=== PATIENT | female | born 1975 | race Caucasian/White ===

== ENCOUNTER → 2018-01-19 11:35 | Emergency (ER) | payer MEDICARE ==
[~2018-01-19 11:35] MED LIST: Tetan/Diph/Pertus SYR(Tdap)* 0.5 ML SYR(BOOSTRIX) use SYR IM ONE
--- NOTE | 2018-01-19 14:14 | RAD ---
INDICATION: Left wrist injury. TECHNIQUE: 3 views of the left wrist were obtained. FINDINGS: The bones are in normal alignment. No fracture is seen. Joint spaces appear maintained. IMPRESSION: NO EVIDENCE FOR FRACTURE. IF THE PATIENT'S SYMPTOMS PERSIST RECOMMEND FOLLOW-UP IMAGING.
--- NOTE | 2018-01-19 14:15 | RAD ---
HISTORY: stomp injury COMPARISONS: None VIEWS: 2 , Frontal and lateral views of the left hand FINDINGS: BONE DENSITY: Normal. BONES: There is no displaced fracture. JOINTS: There is no arthropathy. ALIGNMENT: There is no dislocation. SOFT TISSUES: Unremarkable. OTHER FINDINGS: None. IMPRESSION: NO ACUTE OSSEOUS INJURY. IF SYMPTOMS PERSIST, RECOMMEND REPEAT IMAGING.
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
[2018-01-19 15:15] VITALS: BP 146/89
== END | disposition home or self-care (01) ==
LOC: EDSEX → ED 11:35
DX: S50.12XA Contusion of left forearm, initial encounter (principal); S50.812A Abrasion of left forearm, initial encounter; Y04.2XXA Assault by strike against or bumped into by another person, initial encounter; Y93.01 Activity, walking, marching and hiking; Y92.89 Other specified places as the place of occurrence of the external cause; Z23 Encounter for immunization; F99 Mental disorder, not otherwise specified; Z76.0 Encounter for issue of repeat prescription; Z88.8 Allergy status to other drugs, medicaments and biological substances; Z87.891 Personal history of nicotine dependence
CPT/HCPCS: 90471; 90715; 99282

== ENCOUNTER 2018-01-23 23:21 | Inpatient (IN) | payer SELFPAY ==
[2018-01-23] MEDS ORDERED: Haloperidol INJ IV/IM* 5 MG/ML AMP ONE (23:54)
[2018-01-23] MEDS ORDERED: LORazepam INJ* 2 MG/ML 1 ML VIAL IM ONE (23:55)
[2018-01-23] MEDS ORDERED: Haloperidol INJ IV/IM* 5 MG/ML AMP IM ONE (23:55)
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
[2018-01-24 00:20] LABS: Urine Appearance Cloudy; Urine Blood Negative (Negative); Urine Color Amber; Urine Ketones Negative (Negative); Urine Protein Negative (Negative); Urine Specific Gravity 1.029 (1.010-1.030); Urine Urobilinogen Negative (Negative)
[2018-01-24 00:36] LABS: ABS Basophils 0.1 10^3/ul (0-0.2); ABS Eosinophils 0.3 10^3/ul (0-0.6); ABS Lymphocytes 2.6 10^3/ul (1.0-4.8); ABS Monocytes 0.8 10^3/ul (0-0.8); ABS Neutrophils 6.6 10^3/ul (1.5-7.7); ABS Nucleated RBC 0 10^3/ul; Eosinophil % 2.6 % (0-6); Hematocrit 43 % (35-47); Hemoglobin 14.8 g/dl (12.0-16.0); Lymphocyte % 25.4 % (25-47); Mean Corpuscular HGB Conc 34 g/dl (31-36); Mean Corpuscular Hemoglobin 30 pg (27-31); Mean Corpuscular Volume 88 fL (80-97); Mean Platelet Volume 6.2 um3 (7.4-10.4); Nucleated Red Blood Cells % 0.1; Platelet Count 312 10^3/ul (150-450); Red Blood Count 4.88 10^6/ul (4.00-5.40); Red Cell Distribution Width 13 % (10.5-15); White Blood Count 10.4 10^3/ul (3.5-10.8)
[2018-01-24 00:54] LABS: EGFR Non-African American 52.8 (>60)
[2018-01-24] MEDS ORDERED: LORazepam TAB(*) 1 MG ONE ×2 (02:13→02:15)
[2018-01-24] MEDS ORDERED: Haloperidol TAB* 5 MG ONE ×2 (02:13→02:15)
[2018-01-24] MEDS ORDERED: Haloperidol INJ IV/IM* 5 MG/ML AMP ONE (02:15)
[2018-01-24] MEDS ORDERED: LORazepam INJ* 2 MG/ML 1 ML VIAL ONE (02:15)
[2018-01-24] MEDS ORDERED: LORazepam TAB(*) 1 MG PO ONE (02:26)
[2018-01-24] MEDS ORDERED: Haloperidol TAB* 10 MG PO ONE (02:26)
[2018-01-24] MEDS ORDERED: Haloperidol TAB* 5 MG PO PRN (11:41)
[2018-01-24] MEDS: Ibuprofen TAB* 400 MG PO PRN (12:56)
[2018-01-24] MEDS: carBAMazepine ER TAB(*) 200 MG PO SCH (12:56)
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
[2018-01-24] MEDS: diPHENhydraMINE PO* 50 MG PO PRN (15:50)
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
[2018-01-24] MEDS: Mupirocin 2% OINT* TUBE TOPICAL SCH (22:27)
[2018-01-24] MEDS: OLANzapine TAB* 5 MG PO SCH (22:28)
[2018-01-25] MEDS: Ibuprofen TAB* 400 MG PO PRN (02:57)
[2018-01-25] MEDS: carBAMazepine ER TAB(*) 200 MG PO SCH ×2 (08:19→20:06)
[2018-01-25] MEDS: Mupirocin 2% OINT* TUBE TOPICAL SCH ×2 (10:19→22:50)
[2018-01-25] MEDS ORDERED: Metaxalone TAB* 800 MG PO PRN (10:55)
--- NOTE | 2018-01-25 10:56 | PN ---
Subjective - Subjective Date of Service: 01/25/18 Service Type: 13999 Hosp care 15 min low complexity Subjective: Patient was seen by self, discussed with treatment team, chart was reviewed. Patient has been partially compliant with her medications, no reported side effects. Patient is still easily irrtiable, hyperactive, hyperverbal but some improvement, continues to be uncooperative better than yesterday as he was able to sit during the interview for few minutes before getting agitated about questions regarding his past psychiatric history. As patient is in denial of any mental illness. Patient states "I am not psychotic" and has been refusing his Zyprexa at bedtime and was not happy with that. Patient has been preoccupied about his muscle relaxant (Skelaxin) and Ibuprofen and demanding it. Patient's sleeping has been disturbed. Patient eating has been fair. Patient has been superficially cooperative with staff. Patient refused recommendations by hospitalist yesterday and was educated about it. Patient is angry most of the time but behavior has been in somewhat better control and no dangerous behavior. Patient has been reporting no suicidal or homicidal ideation. Patient has psychotic symptoms of paranoid delusions but no hallucinations. Objective - Appearance Appearance: Healthy Appearing Dysmorphic Features: No Hygiene: Normal Grooming: Fairly Well Kept - Behavior Psychomotor Activities: Normal Exhibits Abnormal Movement: No - Attitude and Relatedness Attitude and Relatedness: Cooperative Eye Contact: Fair - Speech Quality: Unpressured Latencies: Normal Quantity: Appropriate - Mood Patient's Decription of Mood: "Angry" - Affect Observed Affect: Expansive Affect Consistent with: Dysphoria - to angry - Thought Process Patient's Thought Process: Coherent, Tangential - less, Circumstantial Thought Content: Yes Paranoid Ideation, No Passive Wish, No Suicidal Planning, No Homicidal Ideation - Sensorium Experiencing Hallucinations: No, Sensorium is Clear Type of Hallucinations: Visual: No, Auditory: No, Command: No - Level of Consciousness Level of Consciousness: Alert Orientation: Yes Intact, Yes Orientated to Time, Yes Orientated to Place, Yes Orientated to Person - Impulse Control Impulse Control: Poor - Insight and Judgement Insight and Judgement: Poor - Medication Management Medication Management Adherence: Partial Assessment - Assessment Merits Inpatient Hospitalization: For Immediate Safety, For Stabilization, For Discharge Planning Inpatient DSM-V Dx: F31.2 Clinical Impression: Patient with history of unspecified mental illness likely Bipolar Disorder. Patient currently admitted due to worsening of her mood instability, disorganized and delusional thinking with impulsive, risky and unpredictable behavior. Patient has also struggled with her relationship with her fianc that she came from [place] to visit on birthday. Patient is a danger to self and others if discharged hence will be stabilized on inpatient unit with medication adjustments and therapy. Plan - Plan Treatment Plan: Name: MEGHAN HENAO Birthdate: 1975 [id number] - Patient continues to be hospitalized due to recent disorganized and delusional thinking with irritable mood. - Patient's medications were adjusted after informed consent with increment in Tegretol XR 400mg BID and was also started on Muscle relaxant Skelaxin 800mg PRN muscle spasm. Patient Ibuprofen was also increased to 600 mg PRN. Patient was also Sumatriptan prn for migraines. - Patient will be monitored for improvement and side effects. Risk and benefits were discussed. - Patient was encouraged to continue his participation in the milieu, group and individual therapy. Medications: Current Medications Carbamazepine (Tegretol Xr Tab(*)) 400 mg PO BID [facility] Diphenhydramine HCl (Benadryl Po*) 50 mg PO Q6H PRN PRN Reason: anxiety/agitation Last Admin: 01/24/18 15:50 Dose: 50 mg Haloperidol (Haldol Tab*) 5 mg PO Q6H PRN PRN Reason: severe agitation Ibuprofen (Motrin Tab*) 600 mg PO Q6H PRN PRN Reason: PAIN Metaxalone (Skelaxin Tab*) 800 mg PO DAILY PRN PRN Reason: muscle spasms Mupirocin (Bactroban 2 % Oint*) 1 applic TOPICAL BID [facility] Last Admin: 01/25/18 10:19 Dose: 1 applic Olanzapine (Zyprexa Tab*) 5 mg PO BEDTIME [facility] Last Admin: 01/24/18 22:28 Dose: Not Given
[2018-01-25] MEDS ORDERED: SUMAtriptan TAB* 25 MG PO PRN (11:20)
[2018-01-25] MEDS: Metaxalone TAB* 800 MG PO PRN ×2 (11:40→19:57)
[2018-01-25] MEDS: Ibuprofen TAB* 600 MG PO PRN ×2 (11:41→19:29)
[2018-01-25] MEDS: OLANzapine TAB* 5 MG PO SCH (20:07)
[2018-01-25] MEDS ORDERED: oxyCODONE/Acetamin 5/325 MG* TAB PO ONE (22:00)
[2018-01-26] MEDS: Metaxalone TAB* 800 MG PO PRN ×3 (04:16→22:32)
[2018-01-26] MEDS: Ibuprofen TAB* 600 MG PO PRN ×3 (04:17→21:27)
[2018-01-26] MEDS: carBAMazepine ER TAB(*) 200 MG PO SCH ×2 (08:43→20:50)
[2018-01-26] MEDS: Mupirocin 2% OINT* TUBE TOPICAL SCH ×2 (08:44→20:38)
[2018-01-26] MEDS ORDERED: SUMAtriptan TAB* 50 MG PO PRN (13:30)
--- NOTE | 2018-01-26 13:43 | PN ---
Subjective - Subjective Date of Service: 01/26/18 Service Type: 20293 Hosp care 25 min moderate complexity Subjective: Patient was seen by self, discussed with treatment team, chart was reviewed. Patient has been partially compliant with her medications, no reported side effects. Patient is less irrtiable, less hyperactive, less hyperverbal with gradual improvement, waxing and waning in terms of her cooperation level. Patient was less disorganized in her thinking and more understandable. Patient wanted to get back on Kelfex 500 mg which was prescribed on 01/12 for 7 day and patient had taken just six tablets. Patient wanted to address his blisters at the back of foot and stated it was painful .Patient was discussed with Dr. Millard ( hospitalist nursing home admissions director) and recommended to be started on Doxycycline 100 mg PO BID for 10 days an also to be started on Clotrimazole cream for fungal skin lesions. Patient is still resistant to talk about her mental illness and gets easily agitated when brought up in discussion but has been taking Tegretol and getting better in her mood and symptoms. Patient sleep has been better. Patient has been reporting no suicidal or homicidal ideation. Patient has no psychotic symptoms of delusions or hallucinations. Patient requested for computer access to helpe him take care of certain situations related to work and was granted with supervision after discussing with nurse Objective - Appearance Appearance: Healthy Appearing Dysmorphic Features: No Hygiene: Normal Grooming: Fairly Well Kept - Behavior Psychomotor Activities: Normal Exhibits Abnormal Movement: No - Attitude and Relatedness Attitude and Relatedness: Cooperative Eye Contact: Fair - Speech Quality: Unpressured Latencies: Normal Quantity: Appropriate - Mood Patient's Decription of Mood: "Fine" - Affect Observed Affect: Fair Affect Consistent with: Euthymia - but labile - Sensorium Experiencing Hallucinations: No, Sensorium is Clear Type of Hallucinations: Visual: No, Auditory: No, Command: No - Level of Consciousness Level of Consciousness: Alert Orientation: Yes Intact, Yes Orientated to Time, Yes Orientated to Place, Yes Orientated to Person - Impulse Control Impulse Control: Poor - but improving - Insight and Judgement Insight and Judgement: Poor - but improving - Medication Management Medication Management Adherence: Yes Assessment - Assessment Merits Inpatient Hospitalization: For Immediate Safety, For Stabilization, For Discharge Planning Inpatient DSM-V Dx: F31.2 Clinical Impression: Patient with history of unspecified mental illness likely Bipolar Disorder. Patient currently admitted due to worsening of her mood instability, disorganized and delusional thinking with impulsive, risky and unpredictable behavior. Patient has also struggled with her relationship with her fianc that she came from [place] to visit on birthday. Patient is a danger to self and others if discharged hence will be stabilized on inpatient unit with medication adjustments and therapy. Plan - Plan Treatment Plan: Name: MEGHAN HENAO Birthdate: 1975 [id number] - Patient continues to be hospitalized due to recent disorganized and delusional thinking with irritable mood. - Patient's medications were adjusted after informed consent with continuation of Tegretol XR 400mg BID and Muscle relaxant Skelaxin 800mg PRN muscle spasm. Patient Ibuprofen was continued at 600 mg PRN. Patient was also given Sumatriptan 50 mg onetime prn for migraines. - Patient was discussed with hospitalist nursing home admissions director and was started on Doxycycline 100 mg BID for 10 days and Clotrimazole 1% BID to affected area. - Patient will be monitored for improvement and side effects. Risk and benefits were discussed. - Patient was encouraged to continue his participation in the milieu, group and individual therapy. Medications: Current Medications Carbamazepine (Tegretol Xr Tab(*)) 400 mg PO BID [facility] Last Admin: 01/26/18 08:43 Dose: 400 mg Clotrimazole (Clotrimazole 1%*) 1 applic TOPICAL BID [facility] Diphenhydramine HCl (Benadryl Po*) 50 mg PO Q6H PRN PRN Reason: anxiety/agitation Last Admin: 01/24/18 15:50 Dose: 50 mg Doxycycline Hyclate (Vibramycin Cap(*)) 100 mg PO BID [facility] Stop: 02/05/18 13:59 Haloperidol (Haldol Tab*) 5 mg PO Q6H PRN PRN Reason: severe agitation Ibuprofen (Motrin Tab*) 600 mg PO Q6H PRN PRN Reason: PAIN Last Admin: 01/26/18 12:45 Dose: 600 mg Metaxalone (Skelaxin Tab*) 800 mg PO BID PRN PRN Reason: muscle spasms Last Admin: 01/26/18 04:16 Dose: 800 mg Mupirocin (Bactroban 2 % Oint*) 1 applic TOPICAL BID [facility] Last Admin: 01/26/18 08:44 Dose: 1 applic Olanzapine (Zyprexa Tab*) 5 mg PO BEDTIME [facility] Last Admin: 01/25/18 20:07 Dose: Not Given Sumatriptan Succinate (Imitrex Tab*) 50 mg PO ONCE PRN PRN Reason: MIGRAINE HEADACHE
[2018-01-26] MEDS: DOXYcycline CAP(*) 100 MG PO SCH ×2 (14:43→20:36)
--- NOTE | 2018-01-26 16:25 | PN ---
[facility]: Group Therapy Note - Service Type Service Type: [id number] Group Psychotherapy - Medication Education Group: Patient joined group and was intermittently in room. Patient asked questions that were not particularly on topic. Patient receptive to redirection when monopolizing group.
[2018-01-26] MEDS: Clotrimazole 1% CREAM* 45 GM TOPICAL SCH (20:37)
[2018-01-27] MEDS: diPHENhydraMINE PO* 50 MG PO PRN (02:45)
[2018-01-27] MEDS: Ibuprofen TAB* 600 MG PO PRN (06:19)
[2018-01-27] MEDS: DOXYcycline CAP(*) 100 MG PO SCH (09:22)
[2018-01-27] MEDS: carBAMazepine ER TAB(*) 200 MG PO SCH (09:23)
[2018-01-27 09:28] VITALS: BP 151/108
[2018-01-27] MEDS: Clotrimazole 1% CREAM* 45 GM TOPICAL SCH (09:49)
[2018-01-27] MEDS: Mupirocin 2% OINT* TUBE TOPICAL SCH (09:49)
--- NOTE | 2018-01-28 16:45 | DS ---
Subjective - Subjective Service Types: 94146 [facility] Day Mgmt simple under 30 min Discharge Date: 01/28/18 Subjective: JUSTIFICATION FOR ADMISSION: Patient presented to emergency room with delusional and disorganized thinking and behavior, unstable mood, unable to care for self. She requires inpatient psychiatric admission in order to provide treatment and stabilization as she is a danger to herself. CHIEF COMPLAINT: "I dont have a mental illness HISTORY OF THE PRESENT ILLNESS: Patient is a 42 y/o transgender female, single, was living with her naomi, currently unemployed, is a poor historian, not cooperative, with history of unspecified mental illness. 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 Patient also is restless, easily irritable, hyperactive, with over productive and pressured speech. Patient has limited insight in her illness hence compliance is a question. Patient did not cooperate for comprehensive mental health evaluation. Patient was focused on getting help for her ?muscle spasms and lesions on her skin due to her disorganized and intensive walking and not caring for her hygiene and self. Multiple EMS calls were initiated by him to [employer] and [employer] department before being brought to the hospital. Patient reports that she was her to see her naomi on her birthday and now was not happy with her. Patient reports that she was seen at three different hospitals and was discharged without given any medical care. Patient reports no depression and suicidal/homicidal ideation. Patient was uncooperative on the unit, still psychotic and manic and showing limited insight in her illness refusing medications but did agree to take Tegretol XR 400 mg daily. Patient continued to exhibit behavior that is uncontrolled and unpredictable, gets angry easily and is unstable in his mood. PAST PSYCHIATRIC HISTORY: Patient not forthcoming with any details about her treatment and illness history. Other than reporting that she has muscle spasms and she takes two muscle relaxants Skelaxin and Tegretol XR 400mg daily. Patients do reports being allergic to Risperidone and [place] but was unable to give reasonable details of allergic reaction. Patient has history of suicidal thoughts and attempted overdose when she was teenager as per E.D but was not forthcoming with further information. Patient reports no history of homicidal threats, intent or attempt. Patient also as per ED document was hospitalized for about 4.5 month at a psychiatric facility in [place]. SUBSTANCE ABUSE HISTORY: Unknown, was not cooperative but urine toxicology was negative PAST MEDICAL HISTORY: ?Muscle spasms, Bilateral skin blisters from her disorganized behavior ALLERGIES: [place] and Risperidone FAMILY PSYCHIATRIC HISTORY: unknown FAMILY/PSYCHOSOCIAL HISTORY: Patient lives in [place] and stated that she came to see her finohelia on her birthday. Patient was uncooperative other questions. REVIEW OF SYSTEMS: Patients review of symptoms was negative for any physical complaint other than blisters and stating that he coughed sputum because they gave him Risperidone . Patient did not have any cough during the interview but did have blisters on his thighs and foot. Patient vitals were stable. Patients ED physical exam was reviewed which is grossly normal with no active medical problem. Physical Exam Summary: Appearance: Well-appearing, Well-nourished, lying in bed comfortable Skin: Warm, dry, no obvious rash Eyes: sclera anicteric, no conjunctival pallor ENT: mucous membranes moist Neck: deferred Respiratory: No signs of respiratory distress Cardiovascular: Appears well perfused, pulses are nml Abdomen: deferred Musculoskeletal: Moving all 4 extremities without obvious discomfort Neurological: Awake and alert, mentation is normal, speech is fluent and appropriate Psychiatric: pressed rambling speech, labile affect MENTAL STATUS EXAMINATION ON ADMISSION: Appearance: 42 year old, transgender female, wearing sunglasses on the unit, hyperactive, poor hygiene and poorly kempt, making limited eye contact. Behavior: hyperactive, restless, unpredictable and uncooperative Gait: normal Abnormal motor activity: psychomotor agitation Speech: pressured, loud tone and volume Mood: angry Affect: labile, easily irritable Thought process: tangential to loosely associated thoughts Thought Content: Suicidal/Homicidal ideation: denied Delusions: paranoid and grandiose Obsessions: none Phobia: none Perceptual disturbance: none Attention: limited Orientation: grossly intact Concentration: impaired Memory: poor Insight: poor Judgment: poor Impulse control: poor DIAGNOSIS ON ADMISSION: Psychotic Disorder unspecified Prov: Mood Disorder unspecified, Bipolar Disorder with psychotic features DIAGNOSIS ON DISCHARGE: Psychotic Disorder unspecified Prov: Mood Disorder unspecified, Bipolar Disorder with psychotic features Treatment Course & Assessment Clinical Course & Impression: Patient is a 42 y/o male, with history of unspecified mental illness likely Bipolar Disorder. Patient currently admitted due to worsening of her mood instability, disorganized and delusional thinking with impulsive, risky and unpredictable behavior. Patient has also struggled with her relationship with her finohelia that she came from [place] to visit on birthday. Patient was a danger to self and others if discharged hence was stabilized on inpatient unit with medication adjustments and therapy. Patient was admitted to [facility] on Q 15 min observation on involuntary admission status. Patient was integrate patient into the milieu, individual and group psychotherapy. Patient gave informed consent to start Tegretol XR 400mg PO Q daily and was very specific about dosing and stating that she is not taking it as a mood stabilizer but for muscle relaxant. Patient was also started on Zyprexa 5 mg HS to help with her delusional thinking. Patient was started on a low dose given her ? Allergies to Risperidone. Patient was also started on Hydroxyzine PRN for anxiety/agitation and Haldol PRN for severe agitation. Hospitalist was consulted for patients physical complaints, will follow up with recommendations. Patient was monitored for improvement and side effects. Patient on initial day of hospitalization was partially compliant with her medications, no reported side effects. Patient was easily irrtiable, hyperactive , hyperverbal but showed some improvement, continued to be uncooperative but was able to sit during the interview for few minutes before getting agitated about questions regarding his past psychiatric history. As patient is in denial of any mental illness. Patient states "I am not psychotic" and has been refusing his Zyprexa at bedtime and was not happy with that. Patient was preoccupied about his muscle relaxant (Skelaxin) and Ibuprofen and demanding it. Patient's sleeping was disturbed. Patient eating was good. Patient was superficially cooperative with staff. Patient refused recommendations by hospitalist initially but later complied with it after multiple attempt to educate her during this hospitalization. Patient was angry most of the time but behavior was in somewhat better control and no dangerous behavior. Patient was reporting no suicidal or homicidal ideation. Patient had psychotic symptoms of paranoid delusions but no hallucinations. Patient's medications were adjusted after informed consent with increment in Tegretol XR 400mg BID and was also started on Muscle relaxant Skelaxin 800mg PRN muscle spasm. Patient Ibuprofen was also increased to 600 mg PRN. Patient was also Sumatriptan prn for migraines. Jodi has been refusing Zyprexa and adamant about no taking it, psychosis resolved with improvement in manic symptoms, hence it was discontinued. Jodi was improving in her psychotic and manic symptoms and was more accepting of treatment and her diagnosis but still resistant about her past history. Patient was less disorganized in her thinking and more understandable. Patient wanted to get back on Kelfex 500 mg which was prescribed on 01/12 for 7 day and patient had taken just six tablets. Patient wanted to address his blisters at the back of foot and stated it was painful .Patient was discussed with Dr. Millard (hospitalist environmental studies department chair) and recommended to be started on Doxycycline 100 mg PO BID for 10 days an also to be started on Clotrimazole cream for fungal skin lesions. Patient requested for computer access to help him take care of certain situations related to work and was granted with supervision after discussing with nurse. Patient was attending some theapy as well, mood was more stable, denied si//hi, not manic, not psychotic calm and cooperative. Patient was not a danger to self and others, caring for his needs and agreed to outpatient treatment. hence after discussing with team patient was discharged. Merits Inpatient Hospitalization: No Clear for Discharge: Adequate Clinical Respons, Acceptable Safety Profile, Low Utility of Inpt Care Inpatient DSM-V Dx: F31.2 Discharge Planning - Discharge Planning Discharge Planning: Prescriptions provided for discharge [] Yes [] No Follow up care details as per social work arrangements. Patient response to discharge plan: [] eager for discharge [] agreeable with discharge plan [] ambivalent about discharge [] disagrees with discharge today
== END 2018-01-27 12:25 | disposition home or self-care (01) | DRG 885 ==
LOC: ED 23:21 → BSU 01-24 05:11
PROVIDERS: ADMIT Psychiatry & Neurology Psychiatry; ATTEND Psychiatry & Neurology Psychiatry
PROC: GZHZZZZ Group Psychotherapy (ICD-10-PCS; principal; 2018-01-26)
DX: F31.2 Bipolar disorder, current episode manic severe with psychotic features (principal); F41.9 Anxiety disorder, unspecified; M62.838 Other muscle spasm; S90.822A Blister (nonthermal), left foot, initial encounter; S90.821A Blister (nonthermal), right foot, initial encounter; G43.909 Migraine, unspecified, not intractable, without status migrainosus; B35.6 Tinea cruris; R45.1 Restlessness and agitation; Z56.0 Unemployment, unspecified; Z88.8 Allergy status to other drugs, medicaments and biological substances; Z91.048 Other nonmedicinal substance allergy status; Z87.891 Personal history of nicotine dependence; Z72.89 Other problems related to lifestyle; Z91.5 Personal history of self-harm
CPT/HCPCS: 36415; 80053; 80307; 80320; 80329; 81003; 84443; 85025; 90853; 96372; 99222; 99231; 99232; 99238; 99285; A9270-GY; G0480; J1630; J2060

== ENCOUNTER 2018-02-05 01:44 | Emergency (ER) | payer SELFPAY ==
[2018-02-05] MEDS ORDERED: oxyCODONE/Acetamin 5/325 MG* TAB PO ONE (04:00)
[2018-02-05 05:38] VITALS: BP 177/110
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
== END 2018-02-05 05:36 | disposition home or self-care (01) ==
LOC: ED 01:44
DX: S70.11XA Contusion of right thigh, initial encounter (principal); Y35.812A Legal intervention involving manhandling, bystander injured, initial encounter; Y93.01 Activity, walking, marching and hiking; Y92.9 Unspecified place or not applicable; Z87.891 Personal history of nicotine dependence; Z88.8 Allergy status to other drugs, medicaments and biological substances
CPT/HCPCS: 99282; A9270-GY

== ENCOUNTER 2018-02-10 04:37 | Emergency (ER) | payer MEDICARE ==
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
[2018-02-10] MEDS ORDERED: Albuterol/Ipratropium NEB.SOL* Albuterol 2.5 MG/Ipratropium 0.5 MG 3 ML INH ONE (05:04)
[2018-02-10] MEDS ORDERED: Codeine TAB* 30 MG PO ONE (05:04)
[2018-02-10] MEDS ORDERED: Ibuprofen TAB* 800 MG PO ONE (05:28)
[2018-02-10] MEDS ORDERED: Albuterol HFA INHALER* 8 gm MDI INH SCH (07:00)
[2018-02-10 07:14] VITALS: BP 0/0
--- NOTE | 2018-02-10 07:43 | RAD ---
HISTORY: Cough COMPARISONS: None VIEWS: 1: frontal AP view of the chest at 5:55 AM FINDINGS: LINES AND TUBES: None. CARDIOMEDIASTINAL SILHOUETTE: The cardiomediastinal silhouette is normal for portable technique. PLEURA: The costophrenic angles are sharp. No pleural abnormalities are noted. LUNG PARENCHYMA: The lungs are clear. ABDOMEN: The upper abdomen is clear. There is no subphrenic gas. BONES AND SOFT TISSUES: No bone or soft tissue abnormalities are noted. IMPRESSION: NO ACTIVE CARDIOPULMONARY DISEASE. R0
== END 2018-02-10 07:11 | disposition home or self-care (01) ==
LOC: ED 04:37
DX: R05 Cough (principal); R06.2 Wheezing; R06.02 Shortness of breath; Z87.891 Personal history of nicotine dependence
CPT/HCPCS: 71045; 99282; A9270-GY

== ENCOUNTER 2018-02-11 02:08 | Emergency (ER) | payer MEDICARE ==
[2018-02-11 02:21] VITALS: BP 152/93
== END 2018-02-11 02:27 | disposition left against medical advice (07) ==
LOC: ED 02:08
DX: M79.673 Pain in unspecified foot (principal); M25.50 Pain in unspecified joint; Z53.21 Procedure and treatment not carried out due to patient leaving prior to being seen by health care provider

== ENCOUNTER → 2018-02-11 07:12 | Emergency (ER) | payer MEDICARE ==
[2018-02-11 07:32] VITALS: BP 157/98
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
== END | disposition home or self-care (01) ==
LOC: ED 07:12
DX: F41.9 Anxiety disorder, unspecified (principal); L84 Corns and callosities; R06.02 Shortness of breath; Z88.8 Allergy status to other drugs, medicaments and biological substances; G40.909 Epilepsy, unspecified, not intractable, without status epilepticus; Z87.891 Personal history of nicotine dependence; Z79.899 Other long term (current) drug therapy
CPT/HCPCS: 99283